=== PATIENT | female | born 1955 ===

== ENCOUNTER 2024-11-06 08:00 | Day surgery (SDC) | payer OTHER ==
[2024-11-02 12:44] VITALS: BP 151/71
[~2024-11-06] VITALS: Ht 152.4 cm; Wt 59.0 kg
[~2024-11-06 08:00] MED LIST: GLIMEPIRIDE4 M1; LOSARTAN-HCTZ1 EAC2; SIMVASTATIN40 MG; TURMERIC; VITAMINA C; [UNRECOGNIZED DRUG - OTHER]
[2024-11-06] MEDS ORDERED: LIDOCAINE HCL 1%/EPINEPHRINE 20ML VIAL IJ ONE (10:17)
[2024-11-06] MEDS ORDERED: CHLORHEXIDINE GLUCONATE 120 ML BOTTLE TOP ONE (10:17)
[2024-11-06] MEDS ORDERED: EPINEPHRINE HCL/PF 1 MG/ML AMPUL ONE (10:17)
[2024-11-06] MEDS ORDERED: POVIDONE-IODINE 118 ML BOTT TOP ONE (10:45)
[2024-11-06] MEDS ORDERED: TRAM1TAB98 PO (12:41)
== END 2024-11-06 15:55 | disposition home or self-care (01) ==
LOC: CIR.AMB 08:00
PROVIDERS: ATTEND Obstetrics & Gynecology Gynecology
DX: N81.3 Complete uterovaginal prolapse (principal); Z88.0 Allergy status to penicillin; Z88.6 Allergy status to analgesic agent